=== PATIENT | female | born 1985 | race Hispanic/Latino ===

== ENCOUNTER 2017-09-05 10:08 | Emergency (ER) | payer SELFPAY | END 2017-09-05 10:39 | disposition home or self-care (01) | LOC: SCSER 10:08 | DX: J06.9 Acute upper respiratory infection, unspecified (principal) | CPT/HCPCS: 99283 ==

== ENCOUNTER 2018-05-16 04:57 | Inpatient (IN) | payer OTHER ==
[2018-05-16] MEDS ORDERED: Bicitra 30 ML UDCUP PO SCH (05:29)
[2018-05-16] MEDS ORDERED: Lactated Ringer's 1,000 ML IV SCH (05:29)
[2018-05-16] MEDS ORDERED: Ondansetron HCl/PF 4 MG/2 ML Vial IVP PRN ×3 (05:29→10:52)
[2018-05-16 05:30] VITALS: BMI 27.3
[2018-05-16 05:57] LABS: Hemoglobin 10.2 g/dL (12.0-16.0); Mean Corpuscular HGB CONC 34.8 g/dL (32.0-36.0); Mean Corpuscular Hemoglobin 28.1 pg (27.0-31.0); Mean Corpuscular Volume 80.8 fL (78.0-98.0); Platelet Count 326 thou/uL (130-400); RBC Distribution Width 12.4 % (11.5-14.5); Red Blood Cell (RBC) Count 3.64 mill/uL (4.20-5.40); White Blood Cell (WBC) Count 10.8 thou/uL (4.8-10.8)
[2018-05-16 06:37] LABS: Syphilis Antibody Nonreactive (Nonreactive); Syphilis Antibody Index 0.03 S/CO (<1.00 Non-Reactive)
[2018-05-16 06:38] LABS: HBSAg Index 0.24 S/CO (0-0.99); Hep B Surf Ag Non-Reactive S/CO (NonReactive)
[2018-05-16] MEDS ORDERED: CEFAZOLIN/Water 2 GM/20 ML SYRINGE SLOW IVP SCH (07:00)
[2018-05-16] MEDS ORDERED: Oxytocin 10 UNITS/ML VIAL ONE (07:23)
[2018-05-16] MEDS ORDERED: Morphine PF 1 MG/ML SYR ONE (07:23)
[2018-05-16] MEDS ORDERED: Lidocaine 2% PF Inj 2 ML VIAL ONE (07:24)
[2018-05-16] MEDS ORDERED: Bupivacaine 0.75% W/DEXTROSE 8.25% 2 ML AMP ONE (07:24)
[2018-05-16] MEDS ORDERED: PHENYLEPHRINE-NS 100 MCG/ML 10 ML SYRINGE ONE (07:24)
[2018-05-16] MEDS ORDERED: Ondansetron HCl/PF 4 MG/2 ML Vial ONE (08:16)
[2018-05-16] MEDS ORDERED: NS / Oxytocin 40 units/1000ml 1,000 ML ONE (09:19)
[2018-05-16] MEDS ORDERED: Eucerin (Mineral Oil/Petrolatum,White) 30 gm Jar TOP PRN (09:45)
[2018-05-16] MEDS ORDERED: Communication Order-Pharmacy FS SCH (09:45)
[2018-05-16] MEDS ORDERED: Naloxone HCl 0.4 mg/ml Vial IV PRN (09:45)
[2018-05-16] MEDS ORDERED: Ketorolac Tromethamine 30 MG/ML VIAL IVP PRN (09:45)
[2018-05-16] MEDS ORDERED: Naloxone HCl 0.4 mg/ml Vial IVP PRN ×2 (09:45)
--- NOTE | 2018-05-16 10:34 | OP-2 ---
DATE OF PROCEDURE: 05/16/2018 PRIMARY SURGEON: Dr. Coy Jacobs ASSISTING SURGEON: Dr. Rad Cunningham PROCEDURE: Repeat low transverse section. PREOPERATIVE DIAGNOSES: 1. Term intrauterine . 2. Previous section x2. POSTOPERATIVE DIAGNOSES: 1. Term intrauterine . 2. Previous section x2. ANESTHESIA: Spinal. INDICATIONS: This is a 32-year-old G3, now P3 female at 39 and 1 weeks' gestation who presents for a repeat scheduled . PROCEDURE NOTE IN DETAIL: After risks, benefits, and alternatives were explained to the patient, she gave informed consent. Preoperative antibiotics included cefazolin 2 grams IV. The patient was wanda en to the operating room and spinal anesthesia was initiated. She was placed in supine position with a left tilt and prepped and draped in the usual sterile fashion. A Pfannenstiel incision was made w ith a scalpel and carried down to the level of the fascia which was sharply nicked. The fascia was e xtended bilaterally with Briceno scissors. The inferior and superior cut fascial edges were elevated wi th Bob clamps and the underlying rectus muscles were sharply and bluntly dissected free. The rect i were divided digitally and retracted manually. Hemostat with Metzenbaum scissors was used to enter the peritoneum which was then extended bluntly and retracted manually after bluntly examining for chad wel. Bladder blade was placed. A low transverse score was made with the scalpel and the uterus was entered in midline with the scalpel. Clear fluid was seen. Hysterotomy was extended manually. Infa nt noted to be vertex and easily delivered by fundal pressure. Mouth and nares were bulb suctioned. Cord was clamped after delayed 30 seconds and normal female was handed to the waiting nursery team. Cord blood was obtained. Placenta was manually extracted and found to be intact with three-v essel cord and discarded. Uterus was externalized and endometrium was curetted with dry lap. Bladde r blade was replaced and the uterus was closed with a running 0 Vicryl suture followed by 2 figure-of -eight 0 Vicryl sutures. Following this, hemostasis was noted. The abdomen was irrigated with salin e and suctioned free of clots. Uterus was examined anteriorly and posteriorly for bleeding. Uterus was internalized and hysterotomy was again noted to be hemostatic. Peritoneum was closed using 3-0 V icryl running suture. The fascia was closed with a running nonlocking 3-0 PDS.
[2018-05-16] MEDS ORDERED: NS / Oxytocin 40 units/1000ml 1,000 ML IV SCH (10:52)
[2018-05-16] MEDS ORDERED: Bisacodyl 10 MG SUPP PR PRN (10:52)
[2018-05-16] MEDS ORDERED: Lanolin Ointment 7 GM TUBE TOP PRN (10:52)
[2018-05-16] MEDS ORDERED: Simethicone Chewable 80 MG TAB PO PRN (10:52)
--- NOTE | 2018-05-16 11:32 | OP-2 ---
DATE OF PROCEDURE: 05/16/2018 ATTENDING SURGEON: Dr. Coy Jacobs BUHR DRESSER SURGEON: Dr. Rad Cunningham PROCEDURE: Repeat low transverse . PREOPERATIVE DIAGNOSES: 1. Term intrauterine . 2. Previous section x2. POSTOPERATIVE DIAGNOSES: 1. Term intrauterine . 2. Previous section x2. ANESTHESIA: Spinal. INDICATIONS: This is a 32-year-old G3, now P3 female at 39 and 1 weeks' gestation presenting for [facility] repeat . PROCEDURE IN DETAIL: After the risks, benefits, and alternatives were explained to the patient, she gave informed consent. Preoperative antibiotics were cefazolin 2 grams IV. The patient was taken to the operating room and spinal anesthesia was initiated. She was placed in supine position with left tilt and prepped and draped in the usual sterile fashion. Pfannenstiel incision was made with the s calpel and carried down to the level of the fascia which was sharply nicked. The fascia was extended bilaterally with Briceno scissors. The inferior and superior edges of the cut fascial edges were eleva da with Bob clamps and the underlying rectus muscles were sharply and bluntly dissected free. Th e recti were divided digitally and retracted manually. Hemostat and Metzenbaum were used to enter th e peritoneum. The peritoneum was entered bluntly and bowel was examined bluntly and retracted manual ly. The bladder blade was placed. A low transverse score was made with a scalpel and the uterus was entered in the midline with the scalpel. Clear fluid was seen. Hysterotomy was extended manually. The infant was noted to be vertex and was easily delivered by fundal pressure. Mouth and nares were bulb suctioned. Cord was clamped after delayed 30 seconds. Grossly normal female who was handed to the awaiting nursery team. Cord blood was obtained. Placenta was extracted manually and found to b e intact with 3-vessel cord and discarded. The uterus was externalized and endometrium was curetted with a dry lap. Bladder blade was replaced and the uterus was closed using running locking 0 Vicryl suture followed by 2 [id number] using 0 Vicryl. Following this, hemostasis was noted. The abdo men was irrigated with saline and suctioned free of clots. The uterus was internalized and hysteroto my was again found to be hemostatic. The peritoneum was closed using 0 Vicryl suture. Subcutaneous tissue was irrigated and noted to be hemostatic. The fascia was closed using a running nonlocking 0 Vicryl suture. Subcutaneous tissue was irrigated and there were no bleeders. The skin was approxima da with hemanth and pressure dressing was placed. All counts were correct. The patient tolerated t he procedure well and was taken to recovery room in stable condition. ESTIMATED BLOOD LOSS: 450 mL. QBL: Pending. COMPLICATIONS: None. SPECIMENS: Cord blood sent to lab for blood type. FINDINGS: Grossly normal female infant.
[2018-05-16] MEDS: Ferrous Sulfate 325 MG TAB PO SCH ×2 (12:10→21:55)
[2018-05-16] MEDS: Docusate Calcium (SURFAK) 240 MG CAP PO SCH ×2 (12:10→21:55)
[2018-05-16] MEDS: Prenatal Vitamin 1 TAB PO SCH (12:10)
[2018-05-16] MEDS: Ibuprofen 800 MG TAB PO SCH ×2 (15:32→21:56)
[2018-05-16] MEDS ORDERED: HYDROcodone/Acetaminophen 5/325 mg Tablet PO PRN ×2 (21:45)
[2018-05-17 06:02] LABS: Hemoglobin 8.3 g/dL (12.0-16.0); Mean Corpuscular HGB CONC 34.9 g/dL (32.0-36.0); Mean Corpuscular Hemoglobin 28.9 pg (27.0-31.0); Mean Corpuscular Volume 82.8 fL (78.0-98.0); Mean Platelet Volume 7.7 fL (7.4-10.4); Platelet Count 282 thou/uL (130-400); RBC Distribution Width 12.5 % (11.5-14.5); Red Blood Cell (RBC) Count 2.87 mill/uL (4.20-5.40); White Blood Cell (WBC) Count 12.6 thou/uL (4.8-10.8)
[2018-05-17] MEDS: Ibuprofen 800 MG TAB PO SCH ×3 (06:38→21:24)
[2018-05-17] MEDS: Docusate Calcium (SURFAK) 240 MG CAP PO SCH ×2 (08:17→21:24)
[2018-05-17] MEDS: Prenatal Vitamin 1 TAB PO SCH (08:17)
[2018-05-17] MEDS: Ferrous Sulfate 325 MG TAB PO SCH ×2 (08:17→21:24)
[2018-05-18] MEDS: Ibuprofen 800 MG TAB PO SCH ×3 (05:25→21:53)
[2018-05-18] MEDS: Docusate Calcium (SURFAK) 240 MG CAP PO SCH ×3 (09:00→21:52)
[2018-05-18] MEDS: Prenatal Vitamin 1 TAB PO SCH (13:01)
[2018-05-18] MEDS: Ferrous Sulfate 325 MG TAB PO SCH ×2 (13:01→21:52)
[2018-05-19] MEDS: Ibuprofen 800 MG TAB PO SCH (05:46)
[2018-05-19 08:33] VITALS: BP 118/75; TEMP 98.5
[2018-05-19] MEDS: Docusate Calcium (SURFAK) 240 MG CAP PO SCH (09:27)
[2018-05-19] MEDS: Prenatal Vitamin 1 TAB PO SCH (09:27)
[2018-05-19] MEDS: Ferrous Sulfate 325 MG TAB PO SCH (09:27)
== END 2018-05-19 12:15 | disposition home or self-care (01) | DRG 766 ==
LOC: L&D 04:57 → 3SE 11:20
PROVIDERS: ADMIT Family Medicine; ATTEND Family Medicine
PROC: 10D00Z1 Extraction of Products of Conception, Low, Open Approach (ICD-10-PCS; principal; 2018-05-16)
DX: O34.211 Maternal care for low transverse scar from previous cesarean delivery (principal); Z3A.39 39 weeks gestation of pregnancy; Z37.0 Single live birth
CPT/HCPCS: 36415; 51702; 85027; 86780; 86850; 86900; 86901; 87340; J1885; J2274; J2405; J2590; J3490

== ENCOUNTER 2019-07-21 10:31 | Emergency (ER) | payer OTHER, SELFPAY ==
[2019-07-21] MEDS ORDERED: methylPREDNISolone Sod Succ/PF 125 MG/2 ML VIAL ONE (10:56)
[2019-07-21] MEDS ORDERED: diphenhydrAMINE 50 MG/ML VIAL ONE (10:56)
[2019-07-21] MEDS ORDERED: EPINEPHrine 1 MG/ML AMP ONE (10:56)
[2019-07-21] MEDS ORDERED: Famotidine/PF 20 mg/2ml Vial ONE (10:56)
== END 2019-07-21 14:21 | disposition home or self-care (01) ==
LOC: ERS 10:31
DX: R21 Rash and other nonspecific skin eruption (principal); F17.210 Nicotine dependence, cigarettes, uncomplicated
CPT/HCPCS: 96361; 96372; 96374; 96375; J0171; J1200; J2930; S0028